=== PATIENT | male | born 1985 | race Caucasian/White ===

== ENCOUNTER 2017-05-08 12:37 | Emergency (ER) | payer OTHER ==
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
[~2017-05-08 12:37] MED LIST: ALBUTEROL17 GM; ALBUTEROL17 GM INH; BACTRIM DS TABL1 TA1 PO; CIPRO PO; FLEXERIL PO; FLOVENT HFA12 GM; FLOVENT HFA12 GM INH; NAPROSYN375 MG PO; NAPROXEN PO; NO MEDICATIONS; PERCOCET5/325 PO; ULTRAM PO; VICODIN 5/1 TAB 5/50 PO; VICODIN 5/500 T1 TAB PO
== END 2017-05-08 15:40 | disposition home or self-care (01) ==
LOC: CFTX 12:37 → CED 12:37 → CFTX 13:28
DX: S16.1XXA Strain of muscle, fascia and tendon at neck level, initial encounter (principal); S29.012A Strain of muscle and tendon of back wall of thorax, initial encounter; J45.909 Unspecified asthma, uncomplicated; M25.571 Pain in right ankle and joints of right foot; F31.9 Bipolar disorder, unspecified; F17.200 Nicotine dependence, unspecified, uncomplicated; V29.40XA Motorcycle driver injured in collision with unspecified motor vehicles in traffic accident, initial encounter; Y92.488 Other paved roadways as the place of occurrence of the external cause
CPT/HCPCS: 29540; 72040; 72072; 73090; 73610; 99283

== ENCOUNTER 2017-07-09 15:35 | Emergency (ER) | payer OTHER ==
[~2017-07-09] VITALS: Ht 170.2 cm; Wt 68.0 kg
== END 2017-07-09 20:20 | disposition home or self-care (01) ==
LOC: CED 15:35
DX: F11.129 Opioid abuse with intoxication, unspecified (principal); J45.909 Unspecified asthma, uncomplicated; F31.9 Bipolar disorder, unspecified; F20.9 Schizophrenia, unspecified; F17.210 Nicotine dependence, cigarettes, uncomplicated
CPT/HCPCS: 99284